=== PATIENT | female | born 1970 | race African-American/Black ===

== ENCOUNTER 2023-12-07 15:33 | Outpatient (CLI) | payer BC | END 2023-12-07 15:34 | disposition home or self-care (01) | LOC: CSHMAMMO 15:33 | PROVIDERS: ATTEND Nurse Practitioner Family | DX: Z12.31 Encounter for screening mammogram for malignant neoplasm of breast (principal); Z80.3 Family history of malignant neoplasm of breast | CPT/HCPCS: 77063; 77067 ==

== ENCOUNTER 2025-03-06 14:39 | Outpatient (CLI) | payer BC | END 2025-03-06 14:40 | disposition home or self-care (01) | LOC: CSHDTY/OP 14:39 | PROVIDERS: ATTEND Nurse Practitioner Family | DX: Z71.3 Dietary counseling and surveillance (principal) | CPT/HCPCS: 97802 ==